=== PATIENT | female | born 1950 | race Caucasian/White ===

== ENCOUNTER → 2020-08-13 | Outpatient (CLI) | payer OTHER | LOC: EXRD 10:47 | DX: I50.9 Heart failure, unspecified (principal); R06.02 Shortness of breath; R94.2 Abnormal results of pulmonary function studies | CPT/HCPCS: 71046; 94060; 94729 ==

== ENCOUNTER → 2020-11-25 | Outpatient (CLI) | payer OTHER | LOC: HEART 5 10:48 | DX: R93.1 Abnormal findings on diagnostic imaging of heart and coronary circulation (principal); I10 Essential (primary) hypertension; R00.2 Palpitations; I08.1 Rheumatic disorders of both mitral and tricuspid valves; I47.1 Supraventricular tachycardia | CPT/HCPCS: 93306 ==